=== PATIENT | male | born 1980 | race Two or more races ===

== ENCOUNTER 2018-06-09 12:36 | Emergency (ER) | payer SELFPAY ==
[2018-06-09] MEDS ORDERED: Dexamethasone 4 MG Tab PO ONE (13:33)
--- NOTE | 2018-06-09 13:40 | EDM.PDOC ---
ED HPI GENERAL MEDICAL PROBLEM - General Chief Complaint: ENT Problem Stated Complaint: SORE THROAT/FEVER Time Seen by Provider: 06/09/18 13:15 Source of Information: Reports: Patient History Limitations: Reports: No Limitations - History of Present Illness INITIAL COMMENTS - FREE TEXT/NARRATIVE: 38-year-old otherwise healthy male presents to concerns of sore throat, headache , myalgias, and cough. He reports that the symptoms started nearly 2 weeks ago but he was hesitant to come to the doctor until his insisted today. He denies significant dyspnea. He has discomfort with swallowing but no difficulty with this. He is able to work. He has no vision changes. No weakness in extremities. He is not vaccinated for influenza. Multiple contacts in his family with similar symptoms. No known tick bite. Throat Pain Score (Numeric/FACES): 9 - Related Data Allergies Allergy/AdvReac Type Severity Reaction Status Date / Time No Known Allergies Allergy Verified 06/09/18 12:59 Home Meds: Home Meds NK [No Known Home Meds] 06/09/18 [History] Past Medical History - Past Health History Medical/Surgical History: Denies Medical/Surgical History Social & Family History - Family History Family Medical History: Noncontributory - Tobacco Use Smoking Status *Q: Never Smoker Second Hand Smoke Exposure: No - Caffeine Use Caffeine Use: Reports: None - Recreational Drug Use Recreational Drug Use: No ED ROS ENT - Review of Systems Review Of Systems: See Below Constitutional: Reports: Fatigue HEENT: Reports: Throat Pain Respiratory: Reports: Cough Cardiovascular: Reports: No Symptoms Endocrine: Reports: No Symptoms GI/Abdominal: Reports: No Symptoms : Reports: No Symptoms Musculoskeletal: Reports: Joint Pain Skin: Reports: No Symptoms Neurological: Reports: Headache Psychiatric: Reports: No Symptoms Hematologic/Lymphatic: Reports: No Symptoms Immunologic: Reports: No Symptoms ED EXAM, ENT - Physical Exam Exam: See Below Exam Limited By: No Limitations General Appearance: Alert, No Apparent Distress Ears: Normal External Exam Nose: Normal Inspection Mouth/Throat: Other (oropharyngeal erythema, no tonsillar enlargement or exudate ) Head: Atraumatic, Normocephalic Neck: Normal Inspection, Supple Respiratory/Chest: No Respiratory Distress, Lungs Clear Cardiovascular: Normal Peripheral Pulses GI/Abdominal: Soft, Non-Tender Back: Normal Inspection Extremities: Normal Inspection Neurological: Alert, Oriented Psychiatric: Normal Affect, Normal Mood Skin: Warm, Dry Course - Vital Signs Last Recorded V/S: Last Vital Signs Temp 36.4 C 06/09/18 12:59 Pulse 84 06/09/18 12:59 Resp 17 06/09/18 12:59 BP 131/80 06/09/18 12:59 Pulse Ox 98 06/09/18 12:59 - Orders/Labs/Meds Orders: Active Orders 24 hr Category Date Time Status Dexamethasone Med 06/09/18 13:33 Once 8 mg PO ONETIME ONE - Re-Assessments/Exams Free Text/Narrative Re-Assessment/Exam: 38-year-old male presents with concerns of constellation of symptoms consistent with influenza-like illness, although he reports this has been going on for two weeks. Strongly consistent with a viral illness given the similar symptoms and his family members. His primary concern at this point is sore throat, he does have significant oropharyngeal erythema, will provide a dose of Decadron to attempt to shorten the duration of symptoms. He is otherwise well-appearing and was counseled on symptomatic and supportive measure. 06/09/18 13:38 Departure - Departure Time of Disposition: 13:40 Disposition: Home, Self-Care 01 Clinical Impression: Viral syndrome - Discharge Information *PRESCRIPTION DRUG MONITORING PROGRAM REVIEWED*: No *COPY OF PRESCRIPTION DRUG MONITORING REPORT IN PATIENT EDEN: No Referrals: PCP,None [Primary Care Provider] - Additional Instructions: You symptoms are consistent with a viral illness Please take tylenol and ibuprofen as needed. Ensure you stay well hydrated. See a doctor for significant worsening of symptoms. - My Orders Last 24 Hours: My Active Orders 06/09/18 13:33 Dexamethasone 8 mg PO ONETIME ONE - Assessment/Plan Last 24 Hours: My Active Orders 06/09/18 13:33 Dexamethasone 8 mg PO ONETIME ONE
== END 2018-06-09 13:52 | disposition home or self-care (01) ==
LOC: JP.ED 12:36
DX: B34.9 Viral infection, unspecified (principal)
CPT/HCPCS: 99283; J8540